=== PATIENT | female | born 1950 | race American Indian/Alaskan Native ===

== ENCOUNTER 2018-08-20 09:21 | Outpatient (CLI) | payer MEDICARE ==
--- NOTE | 2018-08-20 12:02 | XRay Report ---
CHEST TWO VIEWS: 08/20/18 09:21:00 CLINICAL: Hypertension. COMPARISON: None FINDINGS: Normal heart and pulmonary vasculature.Aortic tortuosity. The lungs are normally expanded and clear.The bones and soft tissues are normal. IMPRESSION: No acute cardiopulmonary process. Hypertensive changes in the aorta.
== END 2018-08-20 09:22 | disposition home or self-care (01) ==
LOC: SPVWC 09:21
PROVIDERS: ATTEND Internal Medicine
DX: I10 Essential (primary) hypertension (principal)
CPT/HCPCS: 71046

== ENCOUNTER 2018-12-10 09:45 | Outpatient (CLI) | payer MEDICARE ==
--- NOTE | 2018-12-13 09:56 | Mammography Report ---
DIGITAL SCREENING MAMMOGRAM WITH CAD, 12/10/2018 INDICATION: Routine screening mammography. TECHNIQUE: Digital bilateral 2D mammography was obtained in the craniocaudal and mediolateral obliq ue projections. This examination was interpreted with the benefit of Computer-Aided Detection analysi s. COMPARISON: None. FINDINGS: Breast Density: The breasts are almost entirely fatty. There is no evidence of dominant mass, suspicious calcifications or architectural distortion in eithe r breast. IMPRESSION: No mammographic evidence of malignancy. Follow up recommendation: Routine yearly BI-RADS Category 1: Negative. A "normal" or negative report should not discourage follow up or biopsy of a clinically significant f inding. A written summary of these findings will be mailed to the patient. The patient will be entered into a mammography reporting system which will generate a reminder letter for the patient's next appointmen t at the appropriate interval. The [employer] recommends yearly mammograms starting at age 40 and continuing as l tarun as a woman is in good health. Breast MRI is recommended for women with an approximate 20-25% or greater lifetime risk of breast cancer, including women with a strong family history of breast or ova ike cancer or who have been treated for Hodgkin's disease. Signer Name: Frankie Benz MD Signed: 12/13/2018 9:52 AM Workstation Name: [id number]
== END 2018-12-10 09:46 | disposition home or self-care (01) ==
LOC: SPVWC 09:45
PROVIDERS: ATTEND Internal Medicine
DX: Z12.31 Encounter for screening mammogram for malignant neoplasm of breast (principal)
CPT/HCPCS: 77067

== ENCOUNTER 2019-12-14 08:33 | Outpatient (CLI) | payer MEDICARE ==
--- NOTE | 2019-12-14 10:30 | XRay Report ---
CHEST 2 VIEWS INDICATION / CLINICAL INFORMATION: WELL EXAM/ HYPERTENSION. COMPARISON: 08/20/2018 FINDINGS: SUPPORT DEVICES: None. HEART / MEDIASTINUM: Stable. LUNGS / PLEURA: No significant pulmonary or pleural abnormality. No pneumothorax. ADDITIONAL FINDINGS: No significant additional findings. IMPRESSION: 1. No acute findings or significant change. Signer Name: Gerardo Hightower MD Signed: 12/14/2019 10:25 AM Workstation Name: [id number]
--- NOTE | 2019-12-14 13:03 | Mammography Report ---
DIGITAL SCREENING MAMMOGRAM WITH CAD, 12/14/2019 INDICATION: Routine screening mammography. TECHNIQUE: Digital bilateral 2D mammography was obtained in the craniocaudal and mediolateral obliq ue projections. This examination was interpreted with the benefit of Computer-Aided Detection analysi s. COMPARISON: 12/10/2018 FINDINGS: Breast Density: The breasts are almost entirely fatty. There is no evidence of dominant mass, suspicious calcifications or architectural distortion in eithe r breast. IMPRESSION: Follow up recommendation: Routine yearly BI-RADS Category 1: Negative. A "normal" or negative report should not discourage follow up or biopsy of a clinically significant f inding. A written summary of these findings will be mailed to the patient. The patient will be entered into a mammography reporting system which will generate a reminder letter for the patient's next appointmen t at the appropriate interval. The [employer] recommends yearly mammograms starting at age 40 and continuing as l tarun as a woman is in good health. Breast MRI is recommended for women with an approximate 20-25% or greater lifetime risk of breast cancer, including women with a strong family history of breast or ova iek cancer or who have been treated for Hodgkin's disease. Signer Name: Tatiana Vera MD Signed: 12/14/2019 12:58 PM Workstation Name: [id number]
== END 2019-12-14 08:34 | disposition home or self-care (01) ==
LOC: SPVWC 08:33
PROVIDERS: ATTEND Internal Medicine
DX: Z12.31 Encounter for screening mammogram for malignant neoplasm of breast (principal); N64.89 Other specified disorders of breast; I10 Essential (primary) hypertension
CPT/HCPCS: 71046; 77067

== ENCOUNTER 2020-07-05 12:16 | Outpatient (CLI) | payer MEDICARE ==
--- NOTE | 2020-07-05 13:35 | XRay Report ---
CHEST 2 VIEWS INDICATION: WELLNESS CHECK Z00.00/ HYPERTENSION I10. COMPARISON: 12/14/2019 FINDINGS: Support devices: None. Heart: Within normal limits. Lungs/pleura: No acute air space or interstitial disease. No pneumothorax. Additional findings: None. IMPRESSION: No acute findings. No change since 12/14/2019 exam. Signer Name: Jason Sandoval Jr, MD Signed: 07/05/2020 1:30 PM Workstation Name: [id number]
== END 2020-07-05 12:17 | disposition home or self-care (01) ==
LOC: SPVIMAG 12:16
PROVIDERS: ATTEND Internal Medicine
DX: I10 Essential (primary) hypertension (principal)
CPT/HCPCS: 71046

== ENCOUNTER 2020-12-21 08:15 | Outpatient (CLI) | payer MEDICARE ==
--- NOTE | 2020-12-21 10:19 | Mammography Report ---
DIGITAL SCREENING MAMMOGRAM WITH CAD, 12/21/2020 CLINICAL INFORMATION / INDICATION: Routine screening mammography. SCREENING TECHNIQUE: Digital bilateral 2D mammography was obtained in the craniocaudal and mediolateral obliqu e projections. This examination was interpreted with the benefit of Computer-Aided Detection analysis . COMPARISON: 12/14/2019 FINDINGS: Breast Density: There are scattered areas of fibroglandular density. No dominant mass, suspicious calcifications, or architectural distortion in either breast. IMPRESSION: No mammographic evidence of malignancy. Follow up recommendation: Routine yearly BI-RADS Category 1: Negative. A "normal" or negative report should not discourage follow up or biopsy of a clinically significant f inding. A written summary of these findings will be mailed to the patient. The patient will be entered into a mammography reporting system which will generate a reminder letter for the patient's next appointmen t at the appropriate interval. The [employer] recommends yearly mammograms starting at age 40 and continuing as l tarun as a woman is in good health. Breast MRI is recommended for women with an approximate 20-25% or greater lifetime risk of breast cancer, including women with a strong family history of breast or ova ike cancer or who have been treated for Hodgkin's disease. Signer Name: Elan Mejia MD Signed: 12/21/2020 10:14 AM Workstation Name: [id number]
== END 2020-12-21 08:16 | disposition home or self-care (01) ==
LOC: SPVWC 08:15
PROVIDERS: ATTEND Internal Medicine
DX: Z12.31 Encounter for screening mammogram for malignant neoplasm of breast (principal)
CPT/HCPCS: 77067